=== PATIENT | female | born 1980 | race Caucasian/White ===

== ENCOUNTER 2017-10-21 12:56 | Emergency (ER) | payer OTHER ==
[2017-10-21] MEDS ORDERED: Sodium Chloride 0.9% 1000 ML 1,000 ML IV STA (13:20)
[2017-10-21] MEDS ORDERED: TORAdol 30 mg Injection IV ONE (13:20)
[2017-10-21] MEDS ORDERED: Zofran 4 MG/2 ML VIAL IV ONE (13:20)
--- NOTE | 2017-10-21 13:26 | ERPHSYRPT ---
- History of Present Illness Time Seen by Provider: 10/21/17 13:16 Historian: patient Exam Limitations: no limitations Patient Subjective Stated Complaint: PT HERE FOR PAIN WITH URINATION,AND BLOOD IN URINE SINCE SUNDAY, FEVER AND VOMTING TODAY Triage Nursing Assessment: PT WALKED IN , RESP EASY, SKIN W/D PINK,ABD SOFT, PAIN TO LEFT SIDE OF AND AND FLANK AREA, Physician History: 37-year-old white female arrives with complaint of pain with urination, blood in her urine since Sunday patient states she's been having suprapubic pain pain in the left flank. States that she's had an increased temperature today and vomiting. Past medical history diabetes type 2, factor V blood disorder, hypercholesterolemia Past surgical history includes cholecystectomy, tubal ligation, hysteroscopy, uterine ablation. Timing/Duration: day(s) (2) Activities at Onset: none Quality: cramping, sharpness Abdominal Pain Onset Location: suprapubic, flank (left flank) Pain Radiation: flank (left flank) Severity of Pain-Max: moderate Severity of Pain-Current: moderate Modifying Factors: Improves With: urinating. Worsens With: analgesics, antacids , breathing, coughing, defecating, eating, exercise, lying down, movement, palpation, vomiting, position, walking Associated Symptoms: back (left flank pain), nausea, vomiting, No chest pain, No diaphoresis, No diarrhea, No fever/chills, No fatigue, No headache, No heartburn, No loss of appetite, No neck pain, No rash, No shortness of breath, No syncope, No weakness Previous symptoms: no prior history Allergies/Adverse Reactions: Penicillins Allergy (Mild, Verified 10/21/17 13:17) allergy as child cephalexin monohydrate [From Keflex] Adverse Reaction (Intermediate, Verified 13:17) Vomiting within last 5 years Home Medications: Aspirin 81 gm Chew [Baby Aspirin 81 mg Chew] 81 mg DAILY 10/21/17 [History ] Hx Influenza Vaccination/Date Given: No Hx Pneumococcal Vaccination/Date Given: No Immunizations Up to Date: Yes - Review of Systems Constitutional: Fever, No Chills, No Fatigue, No Lethargy, No Malaise, No Night Sweats, No Weakness, No Weight Loss Eyes: No Symptoms, No Discharge, No Eye Pain, No Eye Redness, No Itchy, No Photophobia, No Tearing, No Vision Changes, No Double Vision, No Foreign Body Sensation Ears, Nose, & Throat: No Symptoms, No Ear Pain, No Ear Discharge, No Hearing Changes, No Tinnitus, No Nose Pain, No Nose Congestion, No Nose Discharge, No Sinus Drainage, No Epistaxis, No Mouth Pain, No Mouth Swelling, No Loose Teeth, No Throat Pain, No Throat Swelling, No Hoarse, No Painful Swallowing, No Snoring , No Stridor Respiratory: No Cough, No Cyanosis, No Dyspnea, No Dyspnea on Exertion (PEREZ), No Stridor, No Wheezing Cardiac: No Chest Pain, No Edema, No Syncope Abdominal/Gastrointestinal: Abdominal Pain (suprapubic abdominal pain), No Nausea, No Vomiting, No Diarrhea, No Constipation, No Hematemesis, No Hematochezia, No Melena, No Dysphagia, No Appetite Changes Genitourinary Symptoms: Dysuria, Hematuria, Flank Pain (left flank pain), No Frequency, No Hesitancy, No Incontinence, No Urgency, No Urinary Retention, No Menorrhagia, No , No Vaginal Bleeding, No Vaginal Discharge, No Vaginal Itching Musculoskeletal: Back Pain (left flank pain), No Neck Pain Skin: No Rash Neurological: No Dizziness, No Focal Weakness, No Sensory Changes Psychological: No Symptoms Endocrine: No Symptoms All Other Systems: Reviewed and Negative - Past Medical History Pertinent Past Medical History: Yes Cardiac History: High Cholesterol Endocrine Medical History: Diabetes Type II Other Medical History: FACTOR 5 BLOOD DISORDER - Past Surgical History Past Surgical History: Yes Gastrointestinal: Cholecystectomy, Exploratory Laparoscopy Female Surgical History: Tubal Ligation, Other Other Surgical History: ABLASION - Social History Smoking Status: Never smoker Exposure to second hand smoke: Yes Drug Use: none Patient Lives Alone: No - Female History Hx Last Menstrual Period: ABLASION 2016 Hx Now: No - Nursing Vital Signs Nursing Vital Signs: Initial Vital Signs Temperature 97.2 F 10/21/17 13:10 Pulse Rate 128 H 10/21/17 13:10 Respiratory Rate 24 10/21/17 13:10 Blood Pressure 137/97 10/21/17 13:10 O2 Sat by Pulse Oximetry 97 10/21/17 13:10 Pain Scale Pain Intensity 7 - Physical Exam General Appearance: no apparent distress, alert Eye Exam: PERRL/EOMI, eyes nml inspection Ears, Nose, Throat Exam: normal ENT inspection, pharynx normal, moist mucous membranes Neck Exam: normal inspection, non-tender, supple, full range of motion Respiratory Exam: normal breath sounds, lungs clear, No respiratory distress Cardiovascular Exam: regular rate/rhythm, normal heart sounds Gastrointestinal/Abdomen Exam: soft, normal bowel sounds, tenderness ( suprapubic tenderness), No distention, No mass, No guarding, No ecchymosis, No pulsatile mass, No rebound, No hernia, No hepatomegaly, No organomegaly, No splenomegaly Back Exam: normal range of motion, CVA tenderness (left flank tenderness), No vertebral tenderness Extremity Exam: normal inspection, normal range of motion, pelvis stable Neurologic Exam: alert, oriented x 3, cooperative, normal mood/affect, nml cerebellar function, sensation nml, No motor deficits Skin Exam: normal color, warm, dry SpO2 Interpretation: normal (97%) SpO2: 97 Oxygen Delivery: Room Air Ordered Tests: Active Orders 24 hr Category Date Time Status IV Insertion STAT Care 10/21/17 13:20 Active AMYLASE Stat Lab 10/21/17 13:36 Completed CBC W DIFF Stat Lab 10/21/17 13:36 Completed CMP Stat Lab 10/21/17 13:36 Completed CULTURE,URINE Stat Lab 10/21/17 13:36 Received HCG QUALITATIVE,SERUM Stat Lab 10/21/17 13:36 Completed LIPASE Stat Lab 10/21/17 13:36 Completed UA W/ MICROSCOPIC Stat Lab 10/21/17 13:36 Completed Medication Summary Generic Name Dose Route Start Last Admin Trade Name Freq PRN Reason Stop Dose Admin Sodium Chloride 1,000 mls @ 999 mls/hr 10/21/17 13:20 10/21/17 13:37 Sodium Chloride 0.9% 1000 Ml IV 10/21/17 14:20 999 mls/hr .Q1H1M STA Administration Levofloxacin/Dextrose 500 mg in 100 mls @ 100 mls/hr 10/21/17 13:56 10/21/17 14:02 Levofloxacin 500mg/100ml D5w IV 10/21/17 14:55 100 mls/hr STAT STA Administration Discontinued Medications Generic Name Dose Route Start Last Admin Trade Name Freq PRN Reason Stop Dose Admin Sodium Chloride Confirm 10/21/17 13:34 Sodium Chloride 0.9% 1000 Ml Administered 10/21/17 13:35 Dose 1,000 mls @ ud .ROUTE .STK-MED ONE Levofloxacin/Dextrose Confirm 10/21/17 14:01 Levofloxacin 500mg/100ml D5w Administered 10/21/17 14:02 Dose 500 mg in 100 mls @ ud IV .STK-MED ONE Ketorolac Tromethamine 30 mg 10/21/17 13:20 10/21/17 13:37 Toradol 30 Mg Injection IV 10/21/17 13:21 30 mg STAT ONE Administration Ketorolac Tromethamine Confirm 10/21/17 13:34 Toradol 30 Mg Injection Administered 10/21/17 13:35 Dose 30 mg .ROUTE .STK-MED ONE Ondansetron HCl 4 mg 10/21/17 13:20 10/21/17 13:37 Zofran 4 Mg/2 Ml Vial IV 10/21/17 13:21 4 mg STAT ONE Administration Ondansetron HCl Confirm 10/21/17 13:34 Zofran 4 Mg/2 Ml Vial Administered 10/21/17 13:35 Dose 4 mg .ROUTE .STK-MED ONE Lab/Rad Data: Laboratory Result Diagrams 10/21/17 13:36 10/21/17 13:36 Laboratory Results 10/21/17 10/21/17 10/21/17 Range/Units 13:36 13:36 13:36 WBC (4.0-10.5) K/mm3 RBC (4.1-5.4) M/mm3 Hgb (12.0-16.0) gm/dl Hct (35-47) % MCV (78-100) fl MCH (26-32) pg MCHC (32-36) g/dl RDW (11.5-14.0) % Plt Count (150-450) K/mm3 MPV (6-9.5) fl Gran % (36.0-66.0) % Lymphocytes % (24.0-44.0) % Monocytes % (0.0-12.0) % Eosinophils % (0.00-5.0) % Basophils % (0.0-0.4) % Basophils # (0-0.4) Sodium 136 (136-145) mEq/L Potassium 3.7 (3.5-5.1) mEq/L Chloride 101 (98-107) mEq/L Carbon Dioxide 22.6 (21-32) mEq/L Anion Gap 16.5 H (5-15) MEQ/L BUN 8 L (9-20) mg/dL Creatinine 1.05 (0.55-1.30) mg/dl Estimated GFR > 60 ML/MIN Glucose 197 H (70-110) MG/DL Calcium 8.7 (8.5-10.1) mg/dL Total Bilirubin 0.50 (0.2-1.0) mg/dL AST 43 H (15-37) U/L ALT 72 (12-78) U/L Alkaline Phosphatase 98 (46-116) U/L Serum Total Protein 7.9 (6.4-8.2) gm/dL Albumin 3.0 L (3.4-5.0) g/dL Amylase 40 (25-115) U/L Lipase 134 (73-393) U/L Serum , Qual NEGATIVE (Negative) Ur Collection Type VOID Urine Color YELLOW (YELLOW) Urine Appearance CLOUDY (CLEAR) Urine pH 5.0 (5-6) Ur Specific [place] 1.010 (1.005-1.025) Urine Protein 2+ (Negative) Urine Ketones SMALL (NEGATIVE) Urine Blood 250 (0-5) Reyes/ul Urine Nitrite POSITIVE (NEGATIVE) Urine Bilirubin NEGATIVE (NEGATIVE) Urine Urobilinogen NORMAL (0-1) mg/dL Ur Leukocyte Esterase 2+ (NEGATIVE) Urine Microscopic RBC 0-2 (0-2) /HPF Urine Microscopic WBC >100 (0-5) /HPF Ur Epithelial Cells FEW (FEW) /HPF Urine Bacteria PACKED (NEGATIVE) /HPF Urine Culture Reflexed YES (NO) Urine Glucose TRACE (NEGATIVE) mg/dL Specimen Received 10/21/17 1325 10/21/17 Range/Units 13:36 WBC 14.0 H (4.0-10.5) K/mm3 RBC 4.13 (4.1-5.4) M/mm3 Hgb 12.4 (12.0-16.0) gm/dl Hct 38.4 (35-47) % MCV 93.0 (78-100) fl MCH 30.0 (26-32) pg MCHC 32.3 (32-36) g/dl RDW 13.1 (11.5-14.0) % Plt Count 195 (150-450) K/mm3 MPV 9.8 H (6-9.5) fl Gran % 84.3 H (36.0-66.0) % Lymphocytes % 7.4 L (24.0-44.0) % Monocytes % 8.1 (0.0-12.0) % Eosinophils % 0.1 (0.00-5.0) % Basophils % 0.1 (0.0-0.4) % Basophils # 0.02 (0-0.4) Sodium (136-145) mEq/L Potassium (3.5-5.1) mEq/L Chloride (98-107) mEq/L Carbon Dioxide (21-32) mEq/L Anion Gap (5-15) MEQ/L BUN (9-20) mg/dL Creatinine (0.55-1.30) mg/dl Estimated GFR ML/MIN Glucose (70-110) MG/DL Calcium (8.5-10.1) mg/dL Total Bilirubin (0.2-1.0) mg/dL AST (15-37) U/L ALT (12-78) U/L Alkaline Phosphatase (46-116) U/L Serum Total Protein (6.4-8.2) gm/dL Albumin (3.4-5.0) g/dL Amylase (25-115) U/L Lipase (73-393) U/L Serum , Qual (Negative) Ur Collection Type Urine Color (YELLOW) Urine Appearance (CLEAR) Urine pH (5-6) Ur Specific [place] (1.005-1.025) Urine Protein (Negative) Urine Ketones (NEGATIVE) Urine Blood (0-5) Reyes/ul Urine Nitrite (NEGATIVE) Urine Bilirubin (NEGATIVE) Urine Urobilinogen (0-1) mg/dL Ur Leukocyte Esterase (NEGATIVE) Urine Microscopic RBC (0-2) /HPF Urine Microscopic WBC (0-5) /HPF Ur Epithelial Cells (FEW) /HPF Urine Bacteria (NEGATIVE) /HPF Urine Culture Reflexed (NO) Urine Glucose (NEGATIVE) mg/dL Specimen Received - Progress Progress: improved Progress Note: 10/21/17 13:57 Patient was greater than 100 white cells per high-power field in her urine. CBC shows a white count of 14,000 HCG is negative. Patient was suprapubic and left flank tenderness no right lower quadrant tenderness. Patient receiving IV normal saline has received Toradol 30 mg IV and Zofran 4 mg IV. Will plan to give patient Levaquin 500 mg IV. Sent patient home with Bactrim DS one orally twice a day for 10 days,. Also with [place] and Zofran. - Departure Time of Disposition: 14:15 Departure Disposition: Home Clinical Impression: Suprapubic abdominal pain, Left flank pain Nausea and vomiting Qualifiers: Vomiting type: unspecified Vomiting Intractability: non-intractable Qualified Code(s): R11.2 - Nausea with vomiting, unspecified UTI (urinary tract infection) Qualifiers: Urinary tract infection type: site unspecified Hematuria presence: without hematuria Qualified Code(s): N39.0 - Urinary tract infection, site not specified Condition: Fair Critical Care Time: No Referrals: VANDA RICO MD [Primary Care Provider] - Additional Instructions: Return home. Plenty of fluids. [place] 5/325 #12 one orally every 4-6 hours as needed for pain. Zofran 4 mg orally every 4-6 hours as needed for nausea and vomiting #10. Bactrim DS one orally twice a day for 10 days. Follow-up with your family doctor call for an appointment tomorrow. Return for acute distress or for severe symptoms. Prescriptions: Hydrocodone/Acetaminophen [[place] 5-325 Tablet] 1 tab PO Q4-6HPRN PRN #12 tablet MDD 6 tabs PRN Reason: Pain Ondansetron [Zofran Odt] 4 mg PO Q4-6HPRN PRN #10 tab.rapdis PRN Reason: nausea and vomiting Smz/Tmp Ds Tablet [Bactrim Ds Tablet] 1 tab PO BID #20 tablet
[2017-10-21] MEDS ORDERED: Sodium Chloride 0.9% 1000 ML 1,000 ML ONE (13:34)
[2017-10-21] MEDS ORDERED: Zofran 4 MG/2 ML VIAL ONE (13:34)
[2017-10-21] MEDS ORDERED: TORAdol 30 mg Injection ONE (13:34)
[2017-10-21 13:38] LABS: BASOPHIL % 0.1 % (0.0-0.4); Eosinophil % 0.1 % (0.00-5.0); Granulocytes % 84.3 % (36.0-66.0); Lymphocytes % 7.4 % (24.0-44.0); Mean Platelet Volume 9.8 fl (6-9.5); Monocytes % 8.1 % (0.0-12.0); Platelet Count 195 K/mm3 (150-450); Red Blood Count 4.13 M/mm3 (4.1-5.4); Red Cell Distribution Width 13.1 % (11.5-14.0)
[2017-10-21 13:41] LABS: Bilirubin NEGATIVE (NEGATIVE); Blood 250 Ery/ul (0-5); COMPLETE URINE MICROSCOPIC? YES; Collection Type VOID; Glucose TRACE mg/dL (NEGATIVE); Leukocyte Esterase 2+ (NEGATIVE)
[2017-10-21 13:42] LABS: ADD URINE CULTURE? YES (NO); Bacteria PACKED /HPF (NEGATIVE); Epithelial Cells FEW /HPF (FEW); WBC >100 /HPF (0-5)
[2017-10-21] MEDS ORDERED: Levofloxacin 500MG/100ML D5W 500 MG/100 ML BAG IV STA (13:56)
[2017-10-21 13:57] LABS: ALKALINE PHOSPHATASE 98 U/L (46-116); ANION GAP 16.5 MEQ/L (5-15); CHLORIDE 101 mEq/L (98-107); Carbon Dioxide 22.6 mEq/L (21-32); Glucose 197 MG/DL (70-110); LIPASE 134 U/L (73-393); Potassium 3.7 mEq/L (3.5-5.1); SGOT/AST 43 U/L (15-37); SGPT/ALT 72 U/L (12-78); SODIUM 136 mEq/L (136-145); Total Protein 7.9 gm/dL (6.4-8.2)
[2017-10-21] MEDS ORDERED: Levofloxacin 500MG/100ML D5W 500 MG/100 ML BAG IV ONE (14:01)
[2017-10-21 14:07] LABS: BLOOD UREA NITROGEN 8 mg/dL (9-20)
[2017-10-21 15:22] VITALS: BP 115/75; PULSE 98; O2SAT 98
== END 2017-10-21 15:49 | disposition home or self-care (01) ==
LOC: ED 12:56
DX: R11.2 Nausea with vomiting, unspecified (principal); N39.0 Urinary tract infection, site not specified; R10.9 Unspecified abdominal pain
CPT/HCPCS: 36000; 36415; 80053; 81000; 82150; 83690; 84703; 85025; 87077; 87086; 87186; 96360; 96365; 96374; 96375; 99284; J1885; J1956; J2405

== ENCOUNTER 2020-04-17 10:21 | Emergency (ER) | payer OTHER ==
[2020-04-17] MEDS ORDERED: Sodium Chloride 0.9% 1000 ML 1,000 ML IV STA (10:57)
[2020-04-17] MEDS ORDERED: Zofran 4 MG/2 ML VIAL IV ONE (10:57)
[2020-04-17] MEDS ORDERED: Hydromorphone 1 mg/ml Ampule IV ONE (10:57)
--- NOTE | 2020-04-17 10:57 | ERPHSYRPT ---
- History of Present Illness Time Seen by Provider: 04/17/20 10:56 Historian: patient, family Patient Subjective Stated Complaint: Pt stated that when she was awaken this morning with a cramp to her left side and the pain has not went away and it has continued to get worse, pain radiates to the LLQ Triage Nursing Assessment: Pt's brought her to the ER, pain to the upper and lower left quadrant with palpatation and also the left flank, pt squirming in bed and unable to get comfortable, vitals wnl, hx of kidney stones , tubal ligation, pulses normal, skin n/w/d. rates pain 06/21 Physician History: This is a 40-year-old overweight white female with history of type 2 diabetes, high cholesterol and factor V blood disorder who presents with sudden onset of left flank pain with radiation to the left lower quadrant. Patient has a history of ureteral stones in the past and this feels very similar to this. Patient has a history of bilateral tubal ligation. She has no history of any diverticular disease. The pain came on suddenly at 9 in the morning this morning. It woke her up out of a sleep. The pain has worsened and she is in the emergency room writhing in pain and very uncomfortable. She is had no nausea no vomiting or diarrhea. She has no chest pain and no shortness of breath. Other than the left flank pain she has no other urinary symptoms. Activities at Onset: none Quality: sharpness, stabbing Abdominal Pain Onset Location: flank Pain Radiation: LLQ Severity of Pain-Max: moderate Severity of Pain-Current: moderate Modifying Factors: Improves With: nothing Associated Symptoms: denies symptoms, No chest pain, No nausea, No shortness of breath, No vomiting Previous symptoms: same symptoms as today Allergies/Adverse Reactions: Penicillins Allergy (Mild, Verified 04/17/20 10:40) allergy as child cephalexin monohydrate [From Keflex] Adverse Reaction (Intermediate, Verified 10:40) Vomiting within last 5 years Hx Influenza Vaccination/Date Given: No Hx Pneumococcal Vaccination/Date Given: No Travel Risk - International Travel Have you traveled outside of the country in past 3 weeks: No Have you or anyone close to you been diagnosed with or: No Do your reside in a community with a known COVID-19 case?: Yes If Yes where:: [place] - Coronavirus Screening Has patient experienced Coronavirus symptoms: No - Review of Systems Constitutional: No Symptoms Eyes: No Symptoms Ears, Nose, & Throat: No Symptoms Respiratory: No Symptoms Cardiac: No Symptoms Abdominal/Gastrointestinal: Abdominal Pain (Left lower quadrant) Genitourinary Symptoms: Flank Pain (Left flank) Musculoskeletal: No Symptoms Skin: No Symptoms Neurological: No Symptoms Psychological: No Symptoms Endocrine: No Symptoms Hematologic/Lymphatic: No Symptoms Immunological/Allergic: No Symptoms All Other Systems: Reviewed and Negative - Past Medical History Pertinent Past Medical History: Yes Neurological History: No Pertinent History ENT History: No Pertinent History Cardiac History: High Cholesterol Respiratory History: No Pertinent History Endocrine Medical History: Diabetes Type II Musculoskeletal History: No Pertinent History GI Medical History: No Pertinent History History: No Pertinent History Psycho-Social History: No Pertinent History Female Reproductive Disorders: No Pertinent History Other Medical History: FACTOR 5 BLOOD DISORDER - Past Surgical History Past Surgical History: Yes Neuro Surgical History: No Pertinent History Cardiac: No Pertinent History Respiratory: No Pertinent History Gastrointestinal: Cholecystectomy, Exploratory Laparoscopy Genitourinary: No Pertinent History Musculoskeletal: No Pertinent History Female Surgical History: Tubal Ligation, Other Other Surgical History: ABLASION - Social History Smoking Status: Never smoker Exposure to second hand smoke: Yes Drug Use: none Patient Lives Alone: No - Female History Hx Now: No (tubal) - Nursing Vital Signs Nursing Vital Signs: Initial Vital Signs Temperature 98.4 F 04/17/20 10:30 Pulse Rate 74 04/17/20 10:30 Blood Pressure 100/75 04/17/20 10:30 O2 Sat by Pulse Oximetry 98 04/17/20 10:30 Pain Scale Pain Intensity 7 - Physical Exam General Appearance: moderate distress, alert, anxiety, obese Eye Exam: PERRL/EOMI, eyes nml inspection Ears, Nose, Throat Exam: normal ENT inspection, moist mucous membranes Neck Exam: normal inspection, non-tender, supple, full range of motion Respiratory Exam: normal breath sounds, lungs clear, airway intact, No chest tenderness, No respiratory distress Cardiovascular Exam: regular rate/rhythm, normal heart sounds, normal peripheral pulses Gastrointestinal/Abdomen Exam: soft, normal bowel sounds, tenderness (Lower quadrant), No guarding, No rebound Pelvic Exam: not done Rectal Exam: not done Back Exam: normal inspection, normal range of motion, CVA tenderness (Left), No vertebral tenderness Extremity Exam: normal inspection, normal range of motion, pelvis stable Neurologic Exam: alert, oriented x 3, cooperative, 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 Skin Exam: normal color, warm, dry Lymphatic Exam: No adenopathy SpO2 Interpretation: normal SpO2: 98 O2 Delivery: Room Air - Course Nursing assessment & vital signs reviewed: Yes Ordered Tests: Active Orders 24 hr Category Date Time Status IV Insertion STAT Care 04/17/20 10:57 Active ABDOMEN AND PELVIS W/0 CONTRAS [CT] Stat Exams 04/17/20 12:47 Taken AMYLASE Stat Lab 04/17/20 11:00 Completed CBC W DIFF Stat Lab 04/17/20 11:00 Completed CMP Stat Lab 04/17/20 11:00 Completed HCG,QUALITATIVE URINE Stat Lab 04/17/20 11:22 Completed LIPASE Stat Lab 04/17/20 11:00 Completed Lactic Acid Stat Lab 04/17/20 10:57 Completed UA W/RFX UR CULTURE Stat Lab 04/17/20 11:22 Completed Medication Summary Discontinued Medications Generic Name Dose Route Start Last Admin Trade Name Freq PRN Reason Stop Dose Admin Hydromorphone HCl 1 mg 04/17/20 10:57 04/17/20 11:02 Hydromorphone 1 Mg/Ml Ampule IV 04/17/20 10:58 1 mg STAT ONE Administration Hydromorphone HCl Confirm 04/17/20 11:01 Hydromorphone 1 Mg/Ml Ampule Administered 04/17/20 11:02 Dose 1 mg .ROUTE .STK-MED ONE Sodium Chloride 1,000 mls @ 999 mls/hr 04/17/20 10:57 04/17/20 11:03 Sodium Chloride 0.9% 1000 Ml IV 04/17/20 11:57 999 mls/hr .Q1H1M STA Administration Sodium Chloride Confirm 04/17/20 11:01 Sodium Chloride 0.9% 1000 Ml Administered 04/17/20 11:02 Dose 1,000 mls @ ud .ROUTE .STK-MED ONE Ondansetron HCl 4 mg 04/17/20 10:57 04/17/20 11:03 Zofran 4 Mg/2 Ml Vial IV 04/17/20 10:58 4 mg STAT ONE Administration Ondansetron HCl Confirm 04/17/20 11:01 Zofran 4 Mg/2 Ml Vial Administered 04/17/20 11:02 Dose 4 mg .ROUTE .STK-MED ONE Lab/Rad Data: Laboratory Result Diagrams 04/17/20 11:00 04/17/20 11:00 Laboratory Results 04/17/20 04/17/20 04/17/20 Range/Units 11:22 11:22 11:00 WBC (4.0-10.5) K/mm3 RBC (4.1-5.4) M/mm3 Hgb (12.0-16.0) gm/dl Hct (35-47) % MCV (78-100) fl MCH (26-32) pg MCHC (32-36) g/dl RDW (11.5-14.0) % Plt Count (150-450) K/mm3 MPV (7.5-11.0) fl Gran % (36.0-66.0) % Eos # (Auto) (0-0.5) Absolute Lymphs (auto) (1.0-4.6) Absolute Monos (auto) (0.0-1.3) Lymphocytes % (24.0-44.0) % Monocytes % (0.0-12.0) % Eosinophils % (0.00-5.0) % Basophils % (0.0-0.4) % Absolute Granulocytes (1.4-6.9) Basophils # (0-0.4) Sodium 139 (137-145) mmol/L Potassium 4.3 (3.5-5.1) mmol/L Chloride 107 (98-107) mmol/L Carbon Dioxide 22 (22-30) mmol/L Anion Gap 14.3 (5-15) MEQ/L BUN 8 (7-17) mg/dL Creatinine 0.51 L (0.52-1.04) mg/dL Estimated GFR > 60.0 ML/MIN Glucose 210 H (74-106) mg/dL Lactic Acid (0.4-2.0) Calcium 9.0 (8.4-10.2) mg/dL Total Bilirubin 0.50 (0.2-1.3) mg/dL AST 51 H (14-36) U/L ALT 40 H (0-35) U/L Alkaline Phosphatase 89 (38-126) U/L Serum Total Protein 7.3 (6.3-8.2) g/dL Albumin 3.9 (3.5-5.0) g/dL Amylase 51 (30-110) U/L Lipase 129 (23-300) U/L Urine Color YELLOW (YELLOW) Urine Appearance CLEAR (CLEAR) Urine pH 5.0 (5-6) Ur Specific [place] 1.016 (1.005-1.025) Urine Protein NEGATIVE (Negative) Urine Ketones NEGATIVE (NEGATIVE) Urine Blood NEGATIVE (0-5) Reyes/ul Urine Nitrite NEGATIVE (NEGATIVE) Urine Bilirubin NEGATIVE (NEGATIVE) Urine Urobilinogen NEGATIVE (0-1) mg/dL Ur Leukocyte Esterase NEGATIVE (NEGATIVE) Urine WBC (Auto) NONE (0-5) /HPF Urine RBC (Auto) 0-2 (0-2) /HPF U Epithel Cells (Auto) RARE (FEW) /HPF Urine Bacteria (Auto) NONE (NEGATIVE) /HPF Urine Mucus (Auto) SLIGHT (NEGATIVE) /HPF Urine Culture Reflexed NO (NO) Urine Glucose NEGATIVE (NEGATIVE) mg/dL Urine HCG, Qual NEGATIVE (Negative) 04/17/20 04/17/20 Range/Units 11:00 10:57 WBC 8.8 (4.0-10.5) K/mm3 RBC 4.56 (4.1-5.4) M/mm3 Hgb 14.3 (12.0-16.0) gm/dl Hct 41.8 (35-47) % MCV 91.7 (78-100) fl MCH 31.4 (26-32) pg MCHC 34.2 (32-36) g/dl RDW 12.6 (11.5-14.0) % Plt Count 226 (150-450) K/mm3 MPV 10.4 (7.5-11.0) fl Gran % 67.6 H (36.0-66.0) % Eos # (Auto) 0.10 (0-0.5) Absolute Lymphs (auto) 2.30 (1.0-4.6) Absolute Monos (auto) 0.44 (0.0-1.3) Lymphocytes % 26.0 (24.0-44.0) % Monocytes % 5.0 (0.0-12.0) % Eosinophils % 1.1 (0.00-5.0) % Basophils % 0.3 (0.0-0.4) % Absolute Granulocytes 5.97 (1.4-6.9) Basophils # 0.03 (0-0.4) Sodium (137-145) mmol/L Potassium (3.5-5.1) mmol/L Chloride (98-107) mmol/L Carbon Dioxide (22-30) mmol/L Anion Gap (5-15) MEQ/L BUN (7-17) mg/dL Creatinine (0.52-1.04) mg/dL Estimated GFR ML/MIN Glucose (74-106) mg/dL Lactic Acid 1.8 (0.4-2.0) Calcium (8.4-10.2) mg/dL Total Bilirubin (0.2-1.3) mg/dL AST (14-36) U/L ALT (0-35) U/L Alkaline Phosphatase (38-126) U/L Serum Total Protein (6.3-8.2) g/dL Albumin (3.5-5.0) g/dL Amylase (30-110) U/L Lipase (23-300) U/L Urine Color (YELLOW) Urine Appearance (CLEAR) Urine pH (5-6) Ur Specific [place] (1.005-1.025) Urine Protein (Negative) Urine Ketones (NEGATIVE) Urine Blood (0-5) Reyes/ul Urine Nitrite (NEGATIVE) Urine Bilirubin (NEGATIVE) Urine Urobilinogen (0-1) mg/dL Ur Leukocyte Esterase (NEGATIVE) Urine WBC (Auto) (0-5) /HPF Urine RBC (Auto) (0-2) /HPF U Epithel Cells (Auto) (FEW) /HPF Urine Bacteria (Auto) (NEGATIVE) /HPF Urine Mucus (Auto) (NEGATIVE) /HPF Urine Culture Reflexed (NO) Urine Glucose (NEGATIVE) mg/dL Urine HCG, Qual (Negative) - Progress Progress: improved Progress Note: 04/17/20 12:02 Patient reexamined after pain medication. Patient states her symptoms have improved significantly. 04/17/20 14:03 CAT scan of the abdomen and pelvis reveals mild hydronephrosis and hydroureter. Inside of intrarenal, ureteral or bladder calculi. Picture consistent with possible recent ureteral stone passage Counseled pt/family regarding: lab results, diagnosis, rad results - Departure Departure Disposition: Home Clinical Impression: Acute flank pain Condition: Stable Critical Care Time: No Referrals: VANDA RICO MD [Primary Care Provider] - Additional Instructions: Drink plenty of fluids. May use ibuprofen 600 mg orally 3 times a day with food for 5 days. Take medication as prescribed. Follow-up with primary care physician for persistent symptoms. Prescriptions: Hydrocodone/APAP 5-325 Tab^^^ [[place] 5-325 Tablet^^^] 1 tab PO Q8H PRN PRN #8 tablet MDD 3 PRN Reason: Pain
[2020-04-17] MEDS ORDERED: Hydromorphone 1 mg/ml Ampule ONE (11:01)
[2020-04-17] MEDS ORDERED: Sodium Chloride 0.9% 1000 ML 1,000 ML ONE (11:01)
[2020-04-17] MEDS ORDERED: Zofran 4 MG/2 ML VIAL ONE (11:01)
[2020-04-17 11:25] LABS: Absolute Neutrophil Ct (ANC) 5.97 (1.4-6.9); BASOPHIL % 0.3 % (0.0-0.4); Basophil (Absolute #) 0.03 (0-0.4); Eosinophil % 1.1 % (0.00-5.0); Hematocrit 41.8 % (35-47); Hemoglobin 14.3 gm/dl (12.0-16.0); Mean Cell Volume 91.7 fl (78-100); Mean Corpuscular Hemoglobin 31.4 pg (26-32); Mean Corpuscular Hgb Concent. 34.2 g/dl (32-36); Mean Platelet Volume 10.4 fl (7.5-11.0); Monocyte (Absolute #) 0.44 (0.0-1.3); Neutrophil % 67.6 % (36.0-66.0); Platelet Count 226 K/mm3 (150-450); Red Blood Count 4.56 M/mm3 (4.1-5.4); Red Cell Distribution Width 12.6 % (11.5-14.0); White Blood Count 8.8 K/mm3 (4.0-10.5)
[2020-04-17 11:35] LABS: Appearance CLEAR (CLEAR); Bilirubin NEGATIVE (NEGATIVE); Blood NEGATIVE Ery/ul (0-5); Epithelial Cells RARE /HPF (FEW); Glucose NEGATIVE (NEGATIVE); Ketones NEGATIVE (NEGATIVE); Leukocyte Esterase NEGATIVE (NEGATIVE); Mucus SLIGHT /HPF (NEGATIVE); Nitrite NEGATIVE (NEGATIVE); Protein,Urine Dip NEGATIVE (Negative); RBC 0-2 /HPF (0-2); Specific Gravity 1.016 (1.005-1.025); Urobilinogen NEGATIVE mg/dL (0-1)
[2020-04-17 11:46] LABS: ALBUMIN 3.9 g/dL (3.5-5.0); ALKALINE PHOSPHATASE 89 U/L (38-126); AMYLASE 51 U/L (30-110); ANION GAP 14.3 MEQ/L (5-15); BLOOD UREA NITROGEN 8 mg/dL (7-17); CHLORIDE 107 mmol/L (98-107); Carbon Dioxide 22 mmol/L (22-30); Creatinine 1 0.51 mg/dL (0.52-1.04); Glucose 210 mg/dL (74-106); LIPASE 129 U/L (23-300); Potassium 4.3 mmol/L (3.5-5.1); SGOT/AST 51 U/L (14-36); SGPT/ALT 40 U/L (0-35); SODIUM 139 mmol/L (137-145); Total Protein 7.3 g/dL (6.3-8.2)
[2020-04-17 14:16] VITALS: BP 101/67; PULSE 72; O2SAT 97
--- NOTE | 2020-04-17 20:19 | XRAY ---
Indication: Abdomen pain. Multiple contiguous axial images obtained through the abdomen and pelvis without contrast as ordered. Comparison: None Lung bases are clear. Heart is not enlarged. Noncontrasted stomach and bowel loops appear nonobstructed. Normal appendix. Fatty hepatomegaly measuring 20.7 cm. Also splenomegaly measuring 12.7 cm. Previous cholecystectomy. No free fluid/air. Left kidney is minimally hydronephrotic and left ureter is prominent up to 8 mm. No renal calculus in either system. Remaining liver, pancreas, spleen, adrenal glands, kidneys, ureters, bladder, uterus, and aorta appear unremarkable for noncontrast exam. Osseous structures intact with moderate lumbosacral junction degenerative changes. Impression: 1. Minimal left hydronephrosis and left ureter prominence. Rule out recent passage of calculus. 2. Fatty hepatomegaly and splenomegaly. 3. Remaining CT abdomen/pelvis without contrast exam is negative. Comment: Preliminary interpretation was made by [facility]. No critical discrepancy.
== END 2020-04-17 14:16 | disposition home or self-care (01) ==
LOC: ED 10:21
DX: R10.9 Unspecified abdominal pain (principal); N13.30 Unspecified hydronephrosis; E11.9 Type 2 diabetes mellitus without complications
CPT/HCPCS: 36000; 36415; 74176; 80053; 81001; 82150; 83605; 83690; 84703; 85025; 96360; 96374; 96375; 99284; J1170; J2405